=== PATIENT | female | born 1965 | race Caucasian/White ===

== ENCOUNTER 2018-01-07 13:38 | Emergency (ER) | payer OTHER ==
[~2018-01-07] VITALS: Ht 154.9 cm; Wt 98.0 kg
[~2018-01-07 13:38] MED LIST: ASPIRIN EC325 MG PO; PROVENTIL HFA6.7 GM INH
[2018-01-07] MEDS ORDERED: CELEBREX50 MG PO (13:52)
== END 2018-01-07 15:56 | disposition home or self-care (01) ==
LOC: ED 13:38
DX: J44.9 Chronic obstructive pulmonary disease, unspecified (principal); F17.200 Nicotine dependence, unspecified, uncomplicated; Z79.899 Other long term (current) drug therapy; Z79.82 Long term (current) use of aspirin
CPT/HCPCS: 93971; 99284

== ENCOUNTER 2018-03-19 15:47 | Emergency (ER) | payer OTHER ==
[~2018-03-19] VITALS: Ht 154.9 cm; Wt 97.5 kg
[~2018-03-19 15:47] MED LIST changes: +CELEBREX50 MG PO
[2018-03-19] MEDS ORDERED: KEFLEX500 MG PO (17:13)
== END 2018-03-19 17:23 | disposition home or self-care (01) ==
LOC: ED 15:47
DX: L03.116 Cellulitis of left lower limb (principal); F17.200 Nicotine dependence, unspecified, uncomplicated; Z79.82 Long term (current) use of aspirin; Z79.899 Other long term (current) drug therapy
CPT/HCPCS: 80053; 85025; 85610; 85730; 93971; 99284

== ENCOUNTER 2019-08-21 06:00 | Day surgery (SDC) | payer OTHER ==
[~2019-08-21] VITALS: Ht 154.9 cm; Wt 96.2 kg
[~2019-08-21 06:00] MED LIST changes: +DICLOFENAC POTA50 MG PO; +DILTIAZEM ER180 MG PO; +INCRUSE ELLI62.5 MCG; +KEFLEX500 MG PO; +LAMOTRIGINE100 MG PO; +NITROSTAT0.4 MG SL; +OMEPRAZOLE20 MG PO; +PEPCID40 MG; +PEPCID40 MG PO; +SIMVASTATIN20 MG PO; +VITAMIN D5000 UNIT PO
--- NOTE | 2019-08-21 12:49 | NUR ---
08/21/19 Pau Ruffin 1245-PATIENT ARRIVED TO PACU ON 6L MASK AWAKE DROWSY DENIES PAIN OR NAUSEA. RR EVEN. SR. PATIENT HAS NONPRODUCTIVE COUGH. IVF INFUSING. DRESSING TO RIGHT BREAST CDI
[2019-08-21] MEDS ORDERED: AZITHROMYCIN250 MG PO (12:59)
[2019-08-21] MEDS ORDERED: IBUPROFEN600 MG PO (12:59)
[2019-08-21] MEDS ORDERED: TYLENOL EXTRA500 MG PO (12:59)
[2019-08-21] MEDS ORDERED: OXYCODON-ACETA1 EAC2 PO (12:59)
--- NOTE | 2019-08-23 17:27 | OR ---
[facility] [address] [place], [place] [address] Signed DATE OF OPERATION: 08/21/2019 SURGEON: Marguerite Arriola MD PREOPERATIVE DIAGNOSIS: Right abnormal mammogram (medial subareolar area). POSTOPERATIVE DIAGNOSIS: Right abnormal mammogram (medial subareolar area). Additionally noted multiple cystic changes. PROCEDURE: Needle-localized wide excision of subareolar area and medial aspect of breast. ANESTHESIA: Local with IV sedation; Iveth Anna CRNA. INDICATION: This markedly debilitated 54-year-old white woman is a patient of Dr. Nicole. She underwent a mammogram in August, a year ago, showing an abnormality of the right subareolar area. A core biopsy by Dr. Ning Astorga, radiologist was unsuccessful. She was recommended to have needle-localized excisional biopsy. The patient canceled the operation, not wishing to proceed any further. Dr. Nicole in the meantime has urged the patient to follow through with a biopsy as recommended. It was planned for a week ago and developed illness including upper respiratory infection, diarrhea, malaise, and so on. She is improved in that regard, though she still has a bit of a upper respiratory cough that is resolving. Unfortunately, she continues to smoke at least 1/2 to 1 pack of cigarettes daily despite admonition to avoid it. She has undergone needle localization by Dr. Astorga and excisional biopsy is anticipated at this time for diagnosis. The risks of bleeding, infection, need for additional treatment, and so forth were reviewed in detail. She understands and wished to proceed. FINDINGS: The needle emanated somewhat superiorly in relation to the areola and it was not particularly directed beneath the areola per se, but rather medial to it. Wide excision was undertaken including the subareolar area, which showed thick green contents with some cystic changes. Wide resection was undertaken and additional tissue was excised to Electronically Signed By: MARGUERITE ARRIOLA MD 08/23/19 1727 PATIENT NAME: IVETH FORREST OPERATIVE REPORT DATE OF : 65 REPORT #: [id number] PHYSICIAN: MARGUERITE ARRIOLA MD PCP: NEREIDA NICOLE MD REPORT IS CONFIDENTIAL AND NOT TO BE RELEASED WITHOUT AUTHORIZATION [facility] [address] [place], [place] [address] Signed provide a margin if appropriate. Specimen radiograph confirmed the lesion to be within the excised specimen, but was close to the edge of the resection. There is no palpable abnormality within the remaining substance of the breast and no additional excision was undertaken. Parenchymal reapproximation was undertaken to optimize cosmesis at conclusion. She tolerated the procedure well. It is noted that IV sedation local was the anesthetic approach in her case due to her significant underlying comorbidity of pulmonary disease and her own personal fear of general anesthesia related to prolonged intubation from previous anesthetic episodes. No doubt related to her underlying lung disease. DESCRIPTION OF PROCEDURE: The patient was received from radiology suite and full examination undertaken and review of the risks of the operation were reviewed with her as well as in the presence of family members. She was taken to the operating room and given intravenous sedation. Preoperative antibiotics were given. Sequential compression device stockings used and heparin subcutaneously administered. The right breast was prepared with spray Betadine solution and draped sterilely. Wire emanating from the superior aspect in relation to the areola. The areola was not round in configuration, but somewhat oblong. The areolar margin was marked with ink. 0.25% Marcaine with epinephrine was injected on the areolar margin. A curvilinear incision was made along the areolar margin allowing for elevation of the flap superiorly and medially allowing for delivery of the needle (wire). An Allis clamp was used to grasp the surrounding parenchyma and electrocautery dissection was undertaken. As the lesion was considered likely underneath the areola, dissection was taken under there, which showed multiple cystic changes including thick greenish type fluid. Following the wire more fully, however, the wire really was not particularly subareolar but rather medially. On that basis, dissection was taken more medially as well. Wide resection was undertaken at least the size of a plum. Additional tissue was taken medially. The specimen was oriented with short stitch superior and long stitch laterally. The specimen was sent for specimen radiograph. In the meantime, cautery was used for hemostasis. The parenchyma of the breast was reapproximated with interrupted 2-0 Vicryl for improvement of cosmetic affect. Subdermal interrupted 2-0 Vicryl was placed as well. The skin was then closed in a running subcuticular 3-0 Vicryl. Steri-Strips were applied as was a silver sponge dressing. The patient was ultimately allowed to emerge from sedation, taken to recovery room in good condition having suffered no known complications. BLOOD LOSS: Less than 10 mL. Electronically Signed By: MARGUERITE ARRIOLA MD 08/23/19 1727 PATIENT NAME: IVETH FORREST OPERATIVE REPORT DATE OF : 65 REPORT #: [id number] PHYSICIAN: MARGUERITE ARRIOLA MD PCP: NEREIDA NICOLE MD REPORT IS CONFIDENTIAL AND NOT TO BE RELEASED WITHOUT AUTHORIZATION [address], [place] [address] Signed MD AGUSTO Moran/MODL /[id number] cc: MD Ning Oleary MD Copies: NEREIDA NICOLE MD, CYNTHIA SUE MD ~ Electronically Signed By: MARGUERITE ARRIOLA MD 08/23/19 1727 PATIENT NAME: IVETH FORREST OPERATIVE REPORT DATE OF : 65 REPORT #: [id number] PHYSICIAN: MARGUERITE ARRIOLA MD PCP: NEREIDA NICOLE MD REPORT IS CONFIDENTIAL AND NOT TO BE RELEASED WITHOUT AUTHORIZATION
--- NOTE | 2019-08-23 17:55 | PATH ---
[facility] [address] [place], [place] [address] Signed SPECIMEN(S): A RIGHT BREAST SPECIMEN SOURCE: A. RIGHT BREAST CLINICAL HISTORY: Right subareolar mass. FINAL PATHOLOGIC DIAGNOSIS: Breast, right, central tissue with additional medial portion, excision: - Benign breast tissue with fibrocystic change including cyst formation, stromal fibrosis, apocrine metaplasia, and usual ductal hyperplasia. - Fibroadenoma (0.8 cm). - Duct ectasia. - Calcifications associated with benign breast tissue. - Negative for atypia or malignancy. - See Comment. COMMENT: The clinical history of a subareolar mass is noted. Gross examination revealed a white-mckeon, irregular cystic mass within the main excision specimen; this mass was entirely submitted for microscopic examination. Sections show this mass to represent an aggregate of benign ectatic ducts with surrounding fibrotic stroma as well as a fibroadenoma (0.8 cm in greatest dimension). The background breast tissue, including the additional medial portion of breast tissue received within the same container, demonstrates fibrocystic changes and duct ectasia. No atypia or malignancy is identified. Clinical correlation is required. NAL:smn:C2NR MICROSCOPIC EXAMINATION: Histologic sections of all submitted blocks are examined by light microscopy. These findings, together with the gross examination, support the pathologic diagnosis. GROSS DESCRIPTION: The specimen, labeled "NB," and designated on the requisition "right central breast tissue with additional medial portion," is received in formalin and consists of 77 gram oriented portion of yellow-mckeon fibroadipose tissue that is 8.1 x 7.0 x 2.6 cm and has an inserted PATIENT NAME: HIMANSHU FORREST PATHOLOGY DATE OF : 65 REPORT #: [id number] PHYSICIAN: CHIVO PATHOLOGY PCP: NEREIDA COLLINS MD REPORT IS CONFIDENTIAL AND NOT TO BE RELEASED WITHOUT AUTHORIZATION [facility] [address] [place], [place] [address] Signed metal localization wire. A short suture is present and identifies the superior margin; a long suture identifies the lateral margin. The specimen is inked as follows: superior - blue; inferior - green; medial - red; lateral - orange; anterior - yellow; and posterior - black. The specimen is serially sectioned from anterior to posterior into 16 slices revealing a 2.6 x 2.5 x 0.9 cm white-mckeon cystic irregular fibrous tissue that is it present in slices and 9-15. This irregular fibrous tissue is 4.2 cm from the anterior soft tissue margin, 0.4 cm from the posterior soft tissue margin, 2.6 cm from the superior soft tissue margin, 1.6 cm from the inferior soft tissue margin, 2.2 cm from the medial soft tissue margin, and 0.2 cm from the lateral soft tissue margin. Approximately 90% of the remaining specimen is a yellow-mckeon greasy adipose tissue and 10% is a white-mckeon rubbery fibrous tissue. No discrete mass lesions are grossly identified slices 9-15 are entirely submitted for histologic examination. An area of pinkish congestion is present near the inferior margin in slices 3-4 and measures 1.0 x 0.7 x 0.7 cm. Also present within the container is one unoriented portion of yellow-mckeon adipose tissue that has a weight of 8 g and measures 4.6 x 3.7 x 1.6 cm. This tissue fragment is inked black, serially sectioned perpendicular to the long axis revealing approximately 30% of the specimen is a pink-white rubbery fibrous tissue and 70% is a yellow-mckeon fibroadipose tissue. No discrete mass lesions are grossly identified. The cysts second tissue fragment is entirely submitted consecutively in cassettes A1-A8. Shirt Line Operator sections are submitted in 38 cassettes. Cassette summary: (A1-A8) Unoriented portion of yellow-mckeon fibroadipose tissue separate within the container, entirely submitted, consecutively (A9) Anterior soft tissue margin, perpendicular (A10-A14) Slice 9 (A15-A17) Slice 10 (A18-A21) Slice 11 (A22-A25) Slice 12 (A26-A28) Slice 13 (A29-A31) Slice 14 (A32-A34) Slice 15 (A35-A36) Posterior soft tissue resection margin, perpendicular (A37-A38) Area of congestion, slices 3-4 to closest inferior soft tissue PATIENT NAME: HIMANSHU FORREST PATHOLOGY DATE OF : 65 REPORT #: [id number] PHYSICIAN: CHIVO PATHOLOGY PCP: NEREIDA COLLINS MD REPORT IS CONFIDENTIAL AND NOT TO BE RELEASED WITHOUT AUTHORIZATION [address] [address] Signed resection margin, perpendicular. Cold ischemia time: 16 minutes Approximate Formalin time: 23 hours. FB (under the direct supervision of a pathologist) The Gross Description was prepared using a voice recognition system. The report was reviewed for accuracy; however, sound-alike word errors, addition and/or deletions may occur. If there is any question about this report, please contact Client Services. PERFORMING LABORATORY: The technical component was performed by [facility], [address] [place] [id number] (Campaign Coordinator: Karrie Augustin MD; CLIA# [id number]). [facility], [address] [place] [address] (Campaign Coordinator: Scott Freitas MD; CLIA# [id number]). Diagnostician: Bela Garcia MD Pathologist Electronically Signed 08/23/2019 Copies: ~ PATIENT NAME: HIMANSHU FORREST PATHOLOGY DATE OF : 65 REPORT #: [id number] PHYSICIAN: CHIVO FLOREZ PCP: NEREIDA COLLINS MD REPORT IS CONFIDENTIAL AND NOT TO BE RELEASED WITHOUT AUTHORIZATION
== END 2019-08-21 13:45 | disposition home or self-care (01) ==
LOC: OPS 06:00 → US 10:00 → EDSTATUS 10:00 → OPS 13:45
PROVIDERS: Surgery
PROC: 0HBT0ZZ Excision of Right Breast, Open Approach (ICD-10-PCS; principal; 2019-08-21 11:00)
DX: D24.1 Benign neoplasm of right breast (principal); N60.31 Fibrosclerosis of right breast; N60.81 Other benign mammary dysplasias of right breast; N60.41 Mammary duct ectasia of right breast; N60.91 Unspecified benign mammary dysplasia of right breast; R92.1 Mammographic calcification found on diagnostic imaging of breast; E66.01 Morbid (severe) obesity due to excess calories; F41.1 Generalized anxiety disorder; F17.210 Nicotine dependence, cigarettes, uncomplicated; K21.0 Gastro-esophageal reflux disease with esophagitis; J44.9 Chronic obstructive pulmonary disease, unspecified; G47.33 Obstructive sleep apnea (adult) (pediatric); F32.9 Major depressive disorder, single episode, unspecified; I10 Essential (primary) hypertension; Z99.89 Dependence on other enabling machines and devices; Z68.39 Body mass index [BMI] 39.0-39.9, adult; Z79.899 Other long term (current) drug therapy
CPT/HCPCS: 00404; 76098; 76942; 76970; 77065; 88305; J0690; J1100; J1644; J1885; J2250; J2405; J2704; J3010; J7121

== ENCOUNTER 2024-08-26 19:14 | Emergency (ER) | payer OTHER ==
[~2024-08-26 19:14] MED LIST changes: +AZITHROMYCIN250 MG PO; +IBUPROFEN600 MG PO; +OXYCODON-ACETA1 EAC2 PO; +TYLENOL EXTRA500 MG PO
[2024-08-26] MEDS ORDERED: TICAGRELOR 90 MG TAB ONE (19:27)
[2024-08-26] MEDS ORDERED: HEParin SOD (PORCINE) 5,000 UNIT/ML SYR ONE (19:27)
[2024-08-26 19:42] LABS: HEMATOCRIT 48.8 % (35.0-50.0); HEMOGLOBIN 17.1 g/dL (12.0-18.0); MCV 94.2 fl (81-99); PLATELET COUNT 332 K/uL (140-440); RBC 5.18 M/ul (4.3-5.7); RDW 14.3 (10.5-15.0)
[2024-08-26] MEDS ORDERED: NITROGLYCERIN 0.4 MG SUBL SL PRN (19:45)
[2024-08-26] MEDS ORDERED: HEParin SOD (PORCINE) 5,000 UNIT/ML SYR IV ONE (19:45)
[2024-08-26] MEDS ORDERED: TICAGRELOR 90 MG TAB PO ONE (19:45)
[2024-08-26] MEDS ORDERED: ASPIRIN 81 MG CHEW PO ONE (19:45)
[2024-08-26 19:50] VITALS: BP 92/81
[2024-08-26 19:59] LABS: EOSINOPHILS, MANUAL DIFF 2; LYMPHOCYTES, MANUAL DIFF 26; MONOCYTES, MANUAL DIFF 12; NEUTROPHILS, MANUAL DIFF 60
[2024-08-26 20:03] LABS: INR 1.18 (0.80-1.30); PROTIME 14.9 Sec (11.2-14.2)
[2024-08-26 20:08] LABS: ALBUMIN 4.3 g/dL (3.4-5.0); ALBUMIN/GLOBULIN RATIO 1.02 (1.1-2.4); ANION GAP 13.9 (7-21); BILIRUBIN, TOTAL 0.9 ng/dL (0.2-1.0); BUN/CREATININE RATIO 16.19 (6.0-28.6); CALCIUM 9.3 mg/dL (8.5-10.1); CREATININE, SERUM 1.05 mg/dL (0.55-1.02); MAGNESIUM 2.1 mg/dL (1.8-2.4); POTASSIUM 3.9 mmol/L (3.5-5.1); PROTEIN, TOTAL 8.5 g/dL (6.4-8.2)
[2024-08-26 20:14] LABS: CHOLESTEROL/HDL RATIO 4.6
[2024-08-26 20:42] LABS: PARTIAL THROMBOPLASTIN TIME > 250.0 Sec (22.9-41.3)
--- NOTE | 2024-08-31 10:05 | EKG ---
[facility] [address] [facility] [place] [address] Signed Age and gender specific ECG analysis Sinus bradycardia Anterior infarct , possibly acute ACUTE MA / STEMI Abnormal ECG When compared with ECG of 09-AUG-2019 10:13, Anterior infarct is now present ST no longer elevated in Inferior leads ST elevation now present in Anterior leads Confirmed by Anival Reed DO ([id number]) on 08/31/2024 10:05:18 AM Electronically Signed By: ANIVAL REED DO 08/31/24 1005 PATIENT NAME: HIMANSHU FORREST Electrocardiogram DATE OF : 65 PHYSICIAN: ANIVAL REED DO REPORT #: [id number] REPORT IS CONFIDENTIAL AND NOT TO BE RELEASED WITHOUT AUTHORIZATION
== END 2024-08-26 19:50 | disposition short-term general hospital (02) ==
LOC: ED 19:14
PROVIDERS: Internal Medicine
DX: I21.3 ST elevation (STEMI) myocardial infarction of unspecified site (principal); J44.9 Chronic obstructive pulmonary disease, unspecified; F17.200 Nicotine dependence, unspecified, uncomplicated; Z79.899 Other long term (current) drug therapy
CPT/HCPCS: 36415; 71045; 80053; 80061; 83735; 84484; 85025; 85610; 85730; 93005; 93010; 96374; 99285-25; A9270; J1644